=== PATIENT | male | born 1975 | race Caucasian/White ===

== ENCOUNTER 2018-10-17 19:31 | Emergency (ER) | payer BC ==
[~2018-10-17] VITALS: Ht 175.3 cm; Wt 102.1 kg
[~2018-10-17 19:31] MED LIST: IBUPROFEN; VICODIN
[2018-10-17 19:45] VITALS: BP_SYST 142
[2018-10-17] MEDS ORDERED: MAG HYDROX/AL HYDROX/SIMETH 30 ML, BELLADONNA ALKALOIDS/PHENOBARB 10 ML, LIDOCAINE VISC... PO ONE ×3 (21:00)
[2018-10-17 21:16] VITALS: BP_SYST 142
== END 2018-10-17 21:16 | disposition home or self-care (01) ==
LOC: SED 19:31
DX: R09.89 Other specified symptoms and signs involving the circulatory and respiratory systems (principal); R03.0 Elevated blood-pressure reading, without diagnosis of hypertension
CPT/HCPCS: 70360; 70490; 99284; J2001